=== PATIENT | male | born 1985 | race Caucasian/White ===

== ENCOUNTER 2024-07-31 14:00 | Outpatient (RCR) | payer BC, SELFPAY | END 2024-11-28 23:59 | disposition home or self-care (01) | PROVIDERS: PCP Family Medicine; Visit Provider Family Medicine | DX: M25.561 Pain in right knee (principal); G89.29 Other chronic pain; Z51.89 Encounter for other specified aftercare | CPT/HCPCS: 97110; 97140; 97162 ==